=== PATIENT | male | born 1995 | race Hispanic/Latino ===

== ENCOUNTER 2017-10-21 17:10 | Emergency (ER) | payer OTHER ==
[2017-10-21 17:58] LABS: BASO % 0.4 % (0.0-1.0); EOS # 0.1 10^3/uL (0.0-0.50); EOS % 0.9 % (0.0-3.0); HEMATOCRIT 44.5 % (42.0-52.0); HEMOGLOBIN 15.5 g/dl (14.0-18.0); IMMATURE GRANULOCYTE % 0.4 % (0-0); LYMPH # 2.1 10^3/uL (1.5-6.5); LYMPH % 20.3 % (24.0-44.0); MEAN CORPUSCULAR HEMOGLOBIN 27.9 pg (27.0-33.0); MEAN CORPUSCULAR HGB CONC 34.8 g/dl (32.0-36.5); MEAN CORPUSCULAR VOLUME 80.2 fl (80.0-96.0); MONO # 0.8 10^3/uL (0.0-0.8); MONO % 7.9 % (0.0-5.0); NEUTROPHILS # 7.2 10^3/uL (1.8-7.7); NEUTROPHILS % 70.1 % (36.0-66.0); PLATELET COUNT, AUTOMATED 324 10^3/uL (150-450); RED BLOOD COUNT 5.55 10^6/uL (4.30-6.10); RED CELL DISTRIBUTION WIDTH 12.3 % (11.5-14.5); WHITE BLOOD COUNT 10.3 10^3/uL (4.0-10.0)
[2017-10-21 18:07] LABS: INR 0.94; PROTHROMBIN TIME 12.7 SECONDS (12.4-14.5)
[2017-10-21 18:09] LABS: PARTIAL THROMBOPLASTIN TIME 26.5 SECONDS (26.8-37.9)
[2017-10-21 18:10] LABS: BEDSIDE GLUCOSE 101 MG/DL (70-105)
[2017-10-21] MEDS: NS 500 ML IV (18:18)
[2017-10-21] MEDS: ONDANSETRON 4MG/2ML VIAL (J2405) IV (18:19)
[2017-10-21] MEDS: MORPHINE 4 MG/ML 1ML SYRINGE IV ×2 (18:19→20:27)
[2017-10-21 18:21] LABS: ALKALINE PHOSPHATASE 95 U/L (45-117); ALT/SGPT 46 U/L (12-78); AMYLASE 72 U/L (25-115); AST/SGOT 54 U/L (7-37); BILIRUBIN,DIRECT 0.1 MG/DL (0.0-0.2); BILIRUBIN,TOTAL 0.7 MG/DL (0.2-1.0); BLOOD UREA NITROGEN 14 MG/DL (7-18); CALCIUM LEVEL 9.1 MG/DL (8.5-10.1); CARBON DIOXIDE LEVEL 27 MEQ/L (21-32); CHLORIDE LEVEL 103 MEQ/L (98-107); CREATININE FOR GFR 0.88 MG/DL (0.70-1.30); GLUCOSE, FASTING 89 MG/DL (70-105); LIPASE 118 U/L (73-393); POTASSIUM SERUM 3.7 MEQ/L (3.5-5.1); TOTAL PROTEIN 7.8 GM/DL (6.4-8.2); TROPONIN I < 0.02 NG/ML (< 0.10)
[2017-10-21 18:22] LABS: LACTIC ACID SEPSIS PROTOCOL 1.1 MMOL/L (0.4-2.0)
[2017-10-21 18:30] LABS: CK-MB VALUE MASS 3.7 NG/ML (0.0-3.6); CPK CREATINE PHOSPHOKINASE 1596 U/L (39-308); MB/CK RELATIVE INDEX 0.23 (< OR =4)
[2017-10-21 18:44] LABS: ALBUMIN 4.3 GM/DL (3.2-5.2); ALBUMIN/GLOBULIN RATIO 1.23 (1.00-1.93); ANION GAP 9 MEQ/L (8-16); SODIUM LEVEL 139 MEQ/L (136-145)
[2017-10-21] MEDS: NS 1,000 ML IV (19:00)
[2017-10-21] MEDS: diazePAM 5 MG TAB PO (23:47)
[2017-10-21] MEDS: methylPREDNISolone INJ 125 MG/2 ML VIAL (J2930) IV (23:48)
[2017-10-21] MEDS: KETOROLAC 30 MG/ML VIAL (J1885) IV (23:49)
== END 2017-10-22 01:26 | disposition home or self-care (01) ==
LOC: M ED 10-22 01:26
DX: M51.36 Other intervertebral disc degeneration, lumbar region (principal); M51.27 Other intervertebral disc displacement, lumbosacral region
CPT/HCPCS: J2405

== ENCOUNTER → 2017-11-16 | Outpatient (CLI) | payer OTHER | LOC: M RAD 10:06 | DX: R32 Unspecified urinary incontinence (principal) | CPT/HCPCS: 76857 ==

== ENCOUNTER → 2017-11-24 | Outpatient (CLI) | payer OTHER | LOC: M LRY 13:04 | DX: M47.892 Other spondylosis, cervical region (principal); M47.896 Other spondylosis, lumbar region | CPT/HCPCS: 72052 ==

== ENCOUNTER → 2017-11-27 | Outpatient (CLI) | payer OTHER | LOC: M RAD 06:25 | DX: R32 Unspecified urinary incontinence (principal) | CPT/HCPCS: 76857 ==

== ENCOUNTER → 2017-12-01 | Outpatient (REF) | payer OTHER ==
[2017-12-01 20:29] LABS: APPEARANCE, URINE CLEAR (CLEAR); BACTERIA, URINE AUTO NEGATIVE (NEGATIVE); BILIRUBIN, URINE AUTO NEGATIVE (NEGATIVE); BLOOD, URINE BLOOD NEGATIVE (NEGATIVE); COLOR, URINE YELLOW (YELLOW); GLUCOSE, URINE (UA) AUTO NEGATIVE (NEGATIVE); KETONE, URINE AUTO NEGATIVE (NEGATIVE); LEUKOCYTE ESTERASE, URINE AUTO NEGATIVE (NEGATIVE); NITRITE, URINE AUTO NEGATIVE (NEGATIVE); PROTEIN, URINE AUTO NEGATIVE (NEGATIVE); RBC, URINE AUTO 1 /HPF (0-3); SPECIFIC GRAVITY URINE AUTO 1.018 (1.002-1.035); SQUAMOUS EPITHELIAL CELL UR AU 0 /HPF (0-6); WBC, URINE AUTO 0 /HPF (0-3)
== END ==
LOC: M SMT 17:12
DX: R33.9 Retention of urine, unspecified (principal)
CPT/HCPCS: 81001

== ENCOUNTER 2018-02-03 12:07 | Inpatient (IN) | payer OTHER ==
[2018-02-03 12:47] LABS: HEMATOCRIT 49.7 % (42.0-52.0); HEMOGLOBIN 17.5 g/dl (13.5-17.5); MEAN CORPUSCULAR HEMOGLOBIN 28.7 pg (27.0-33.0); MEAN CORPUSCULAR HGB CONC 35.2 g/dl (32.0-36.5); MEAN CORPUSCULAR VOLUME 81.6 fl (80.0-96.0); PLATELET COUNT, AUTOMATED 293 10^3/uL (150-450); RED BLOOD COUNT 6.09 10^6/uL (4.30-6.10); RED CELL DISTRIBUTION WIDTH 12.5 % (11.5-14.5); WHITE BLOOD COUNT 6.2 10^3/uL (4.0-10.0)
[2018-02-03 13:07] LABS: ALBUMIN 4.5 GM/DL (3.2-5.2); ALBUMIN/GLOBULIN RATIO 1.29 (1.00-1.93); ALKALINE PHOSPHATASE 102 U/L (45-117); ALT/SGPT 26 U/L (12-78); ANION GAP 4 MEQ/L (8-16); AST/SGOT 17 U/L (7-37); BILIRUBIN,DIRECT 0.2 MG/DL (0.0-0.2); BLOOD UREA NITROGEN 15 MG/DL (7-18); CALCIUM LEVEL 9.4 MG/DL (8.5-10.1); CARBON DIOXIDE LEVEL 30 MEQ/L (21-32); CHLORIDE LEVEL 104 MEQ/L (98-107); CREATININE FOR GFR 0.95 MG/DL (0.70-1.30); ETHYL ALCOHOL (ETHANOL) < 0.003 % (0.000-0.010); GLOMERULAR FILTRATION RATE > 60.0 (>60); GLUCOSE, FASTING 93 MG/DL (70-100); POTASSIUM SERUM 4.2 MEQ/L (3.5-5.1); SALICYLATE LEVEL < 1.7 MG/DL (5.0-30.0); SODIUM LEVEL 138 MEQ/L (136-145); THYROID STIMULATING HORMONE 0.912 uIU/ML (0.358-3.740)
[2018-02-03 13:24] LABS: ACETAMINOPHEN LEVEL < 2.0 UG/ML (10.0-30.0)
[2018-02-03 14:03] LABS: AMPHETAMINES LEVEL URINE NEGATIVE (NEGATIVE); BARBITURATES URINE NEGATIVE (NEGATIVE); BENZODIAZEPINES URINE NEGATIVE (NEGATIVE); CANNABINOIDS URINE NEGATIVE (NEGATIVE); COCAINE METABOLITE URINE NEGATIVE (NEGATIVE); METHADONE URINE NEGATIVE (NEGATIVE); OPIATES URINE NEGATIVE (NEGATIVE); PHENCYCLIDINE URINE NEGATIVE (NEGATIVE)
[2018-02-03] MEDS ORDERED: MOM 30ML SUSPENSION UDC PO (14:45)
[2018-02-03] MEDS ORDERED: ACETAMINOPHEN TAB 650MG DOSE (2X325MG) PO (14:45)
[2018-02-03] MEDS ORDERED: MAALOX 30 ML SUSP *UDC PO (14:45)
[2018-02-04] MEDS ORDERED: hydrOXYzine 25 MG TAB PO (12:00)
[2018-02-04] MEDS: GABAPENTIN 300 MG CAP PO ×3 (12:12→22:05)
[2018-02-04] MEDS: SERTRALINE HCL 25 MG TABLET PO (12:12)
[2018-02-04] MEDS: traZODone 50 MG TAB PO (22:15)
[2018-02-05] MEDS: GABAPENTIN 300 MG CAP PO ×3 (09:24→22:07)
[2018-02-05] MEDS: SERTRALINE HCL 25 MG TABLET PO (09:24)
[2018-02-05] MEDS: traZODone 50 MG TAB PO (22:33)
[2018-02-06] MEDS: SERTRALINE HCL 25 MG TABLET PO (09:05)
[2018-02-06] MEDS: GABAPENTIN 300 MG CAP PO ×3 (09:05→21:39)
[2018-02-06] MEDS: traZODone 50 MG TAB PO (23:01)
[2018-02-07] MEDS: GABAPENTIN 300 MG CAP PO ×3 (09:47→22:00)
[2018-02-07] MEDS: SERTRALINE HCL 25 MG TABLET PO (09:47)
[2018-02-08] MEDS: traZODone 50 MG TAB PO (00:28)
[2018-02-08] MEDS: GABAPENTIN 300 MG CAP PO (08:39)
[2018-02-08] MEDS: SERTRALINE HCL 25 MG TABLET PO (08:39)
== END 2018-02-08 12:00 | disposition home or self-care (01) | DRG 881 ==
LOC: M PSY 02-04 16:49 → M ED 12:07 → M ED INP 14:34 → M PSY 16:06
DX: F43.21 Adjustment disorder with depressed mood (principal); R45.851 Suicidal ideations; Z79.899 Other long term (current) drug therapy; F17.290 Nicotine dependence, other tobacco product, uncomplicated